=== PATIENT | female | born 1970 | race African-American/Black ===

== ENCOUNTER 2018-05-06 13:03 | Observation (INO) ==
[2018-05-06 13:45] LABS: Basophils % 0.2 % (0.0-0.8); Eosinophils % 0.6 % (0.00-10.9); Hematocrit 42.2 VOL% (35.7-47.0); Hemoglobin 13.1 GM/DL (12.0-16.0); Immature Granulocytes % 0.2 %; Immature Granulocytes Absolute 0.01 #; Lymphocytes # 2.3 10*3/uL (1.4-4.0); Lymphocytes % 42.6 % (21.3-54.2); Mean Corpuscular Hemoglobin 28 PG (27-34); Mean Corpuscular Volume 88.5 FL (87-102); Mean Platelet Volume 12.8 FL (9.6-12.0); Monocytes # 0.3 10*3/uL (0.11-0.8); Neutrophils # 2.8 10*3/uL (1.4-7.4); Neutrophils % 51.4 % (38.7-73.9); Platelet Count 238 T/CUMM (130-400); Red Blood Count 4.77 MC/CUMM (3.8-5.5); Red Cell Distribution Width 13.4 % (9.3-17.3); White Blood Count 5.4 T/CUMM (4-12)
[2018-05-06 14:01] LABS: Alanine Aminotransferase 21 U/L (13-56); Alkaline Phosphatase 44 U/L (45-117); Aspartate Amino Transferase 13 U/L (0-37); Bilirubin,Total < 0.39 MG/DL (0.2-1.0); Blood Urea Nitrogen 8 MG/DL (7-18); Calcium 9.6 MG/DL (8.5-10.1); Glucose 85 MG/DL (74-106); Osmolality,Calculated 279.1 MOS/KG (273-304); Sodium 142 MMOL/L (136-145); Total Protein 7.7 G/DL (6.4-8.3)
[2018-05-06] MEDS ORDERED: MORPHINE 4 MG/1 ML VIAL IV STA (16:02)
[2018-05-06] MEDS ORDERED: ENOXAPARIN 100 MG/ML SYRINGE SUBCUT STA (16:02)
[2018-05-06] MEDS ORDERED: ONDANSETRON 4 MG/2 ML VIAL IV STA (16:02)
[2018-05-06] MEDS ORDERED: PANTOPRAZOLE 40 MG VIAL IV STA (16:02)
[2018-05-06] MEDS ORDERED: NITROGLYCERIN 2% OINT 1 INCH/GM PACK TOP STA (16:02)
[2018-05-06] MEDS ORDERED: ASPIRIN 325 MG TABLET PO STA (16:02)
[2018-05-06] MEDS ORDERED: ALUM/MAG/SIMETH/LIDO VISC 1:1 30 ML BOTTLE PO STA (16:02)
[2018-05-06] MEDS ORDERED: ACETAMINOPHEN 325 MG TABLET PO PRN (16:48)
[2018-05-06] MEDS ORDERED: ONDANSETRON 4 MG/2 ML VIAL IV PRN (16:48)
[2018-05-06] MEDS ORDERED: MORPHINE 4 MG/1 ML VIAL IV PRN (16:48)
[2018-05-06] MEDS ORDERED: NICOTINE 21 MG/24 HR PATCH TRANSDERM PRN (16:48)
[2018-05-06] MEDS ORDERED: PROMETHAZINE 25 MG/1 ML VIAL IM PRN (16:48)
[2018-05-06] MEDS ORDERED: ENOXAPARIN 40 MG/0.4 ML SYRINGE SUBCUT SCH (17:00)
[2018-05-06] MEDS: PANTOPRAZOLE 40 MG TABLET PO SCH (21:22)
[2018-05-07 01:14] LABS: Basophils % 0.3 % (0.0-0.8); Eosinophils # 0.1 10*3/uL (0.0-0.87); Eosinophils % 1.4 % (0.00-10.9); Hematocrit 36.9 VOL% (35.7-47.0); Hemoglobin 11.6 GM/DL (12.0-16.0); Immature Granulocytes % 0.2 %; Immature Granulocytes Absolute 0.01 #; Lymphocytes # 4.1 10*3/uL (1.4-4.0); Lymphocytes % 64.8 % (21.3-54.2); Mean Corpuscular HGB Conc 31.4 GM/DL (32-36); Mean Corpuscular Hemoglobin 28 PG (27-34); Mean Corpuscular Volume 87.6 FL (87-102); Mean Platelet Volume 12.6 FL (9.6-12.0); Monocytes # 0.4 10*3/uL (0.11-0.8); Monocytes % 6.2 % (1.7-12.7); Neutrophils # 1.7 10*3/uL (1.4-7.4); Neutrophils % 27.1 % (38.7-73.9); Platelet Count 215 T/CUMM (130-400); Red Blood Count 4.21 MC/CUMM (3.8-5.5); Red Cell Distribution Width 13.6 % (9.3-17.3); White Blood Count 6.3 T/CUMM (4-12)
[2018-05-07 01:29] LABS: Calcium 8.3 MG/DL (8.5-10.1); Osmolality,Calculated 285.7 MOS/KG (273-304); Potassium 3.5 MMOL/L (3.5-5.1); Risk Ratio 4.32; VLDL CHOLESTEROL 25.2 MG/DL
[2018-05-07 02:45] LABS: Eosinophils 1 % (0-10); Lymphocytes 68 % (20-55); Platelet Estimate Normal; Segmented Neutrophils 30 % (50-85); Total Cells Counted 100
[2018-05-07 02:46] LABS: Polychromasia Few
[2018-05-07] MEDS: PANTOPRAZOLE 40 MG TABLET PO SCH (08:50)
[2018-05-07 12:28] VITALS: BP 133/99
== END 2018-05-07 14:49 | disposition home or self-care (01) ==
LOC: N.TELEN 13:03 → N.ED 13:03 → SUATTDRO 16:48 → N.TELEN 19:01
PROVIDERS: ADMIT Hospitalist; ATTEND Internal Medicine Nephrology